=== PATIENT | female | born 1940 | race Caucasian/White ===

== ENCOUNTER 2023-10-14 13:21 | Emergency (ER) | payer OTHER, SELFPAY ==
[2023-10-14 13:29] VITALS: BP 140/75; PULSE 69; RESP 16; TEMP 36.7; O2SAT 95; BMI 30.7
--- NOTE | 2023-10-14 14:08 | ED.ABDPAIN ---
HPI - Abdominal Pain <Silvia Valera PA-C - Last Filed: 10/15/23 11:10> General Chief Complaint: Abdominal Pain Stated Complaint: Left abdominal pain after hitting on furniture Time Seen by Provider: 10/14/23 14:01 Source: patient Mode of arrival: Ambulatory History of Present Illness HPI narrative: Patient is a 83-year-old female who stumbled into a sharp corner of a bedside table in the dark 4 days ago. Since then she has been having significant pain in the soft tissues of her left side. The pain does not seem to be getting better. She takes Tylenol without much improvement. She does not take any blood thinners, aside from a baby aspirin once daily. He has no bruising although she does feel the area got swollen and after the incident. She denies any blood in her urine or any urinary symptoms such as dysuria or urinary frequency. She denies fever. The pain is 9/10 at its worst, made worse by moving. Related Data Allergies Allergy/AdvReac Type Severity Reaction Status Date / Time morphine Allergy Verified 10/14/23 13:34 Sulfa (Sulfonamide Allergy Verified 10/14/23 13:34 Antibiotics) Review of Systems <Silvia Valera PA-C - Last Filed: 10/15/23 11:10> Review of Systems ROS Unobtainable: All systems reviewed & are unremarkable except as noted in HPI and below Patient History <Silvia Valera PA-C - Last Filed: 10/15/23 11:10> Social History Smoking Status: Former smoker Smoking Status: Former smoker Substance Use Type: does not use Exam <Silvia Valera PA-C - Last Filed: 10/15/23 11:10> Narrative Exam Narrative: GENERAL: 83 year old patient appears stated age. Well-developed patient, in mild distress. NEURO: AOx3. HEAD: Atraumatic. Normocephalic. EYES: Pupils equal round and reactive. Extraocular motions intact. No scleral icterus. No injection or drainage. ENT: Nose without bleeding or purulent drainage. Airway patent. RESPIRATORY: No distress or increased work of breathing GASTROINTESTINAL: Abdomen soft, nondistended. Focal point of tenderness is in the soft tissues of the left side, inferior to the lowest rib. There is no ecchymosis, mild swelling. Area is tender to palpation. No CVA tenderness. EXTREMITIES: No edema or joint tenderness. SKIN: No rash or erythema of visible areas Initial Vital Signs Initial Vital Signs: Vital Signs Temperature 98.1 F 10/14/23 13:29 Pulse Rate 69 10/14/23 13:29 Respiratory Rate 16 10/14/23 13:29 Blood Pressure 140/75 10/14/23 13:29 Pulse Oximetry 95 10/14/23 13:29 Oxygen Delivery Method Room Air 10/14/23 13:29 <Donita Aiken DO - Last Filed: 10/15/23 17:42> Initial Vital Signs Initial Vital Signs: Vital Signs Temperature 98.1 F 10/14/23 13:29 Pulse Rate 69 10/14/23 13:29 Respiratory Rate 16 10/14/23 13:29 Blood Pressure 140/75 10/14/23 13:29 Pulse Oximetry 95 10/14/23 13:29 Oxygen Delivery Method Room Air 10/14/23 13:29 Course <Silvia Valera PA-C - Last Filed: 10/15/23 11:10> Vital Signs Vital signs: Vital Signs - 8 hr 10/14/23 13:29 Temperature 98.1 F Pulse Rate 69 Respiratory Rate 16 Blood Pressure 140/75 Pulse Oximetry 95 Oxygen Delivery Method Room Air <Donita Aiken DO - Last Filed: 10/15/23 17:42> Vital Signs Vital signs: Vital Signs - 8 hr 10/14/23 13:29 Temperature 98.1 F Pulse Rate 69 Respiratory Rate 16 Blood Pressure 140/75 Pulse Oximetry 95 Oxygen Delivery Method Room Air MDM - Abdominal Pain <Silvia Valera PA-C - Last Filed: 10/15/23 11:10> Lab Data 10/14/23 14:59 10/14/23 14:59 Labs: Lab Results 10/14/23 10/14/23 Range/Units 14:59 15:50 WBC 6.8 (4.5-11.0) X10^3/uL RBC 4.48 (4.0-5.2) X10^6/uL Hgb 13.6 (12.0-16.0) g/dL Hct 40.6 (36-46) % MCV 90.6 (80-100) fL MCH 30.4 (26-34) PG MCHC 33.5 (30-36) % RDW 13.1 (11.6-14.8) % Plt Count 239 (150-400) X10^3/uL Neut % (Auto) 55.0 (50-75) % Lymph % (Auto) 29.9 (25-40) % Esmeralda % (Auto) 9.9 (3-14) % Eos % (Auto) 4.3 H (2-4) % Baso % (Auto) 0.9 (0-2) % Neut # (Auto) 3700 (5165-7891) /uL Lymph # (Auto) 2000 (5582-4863) /uL Esmeralda # (Auto) 700 (0-900) /uL Eos # (Auto) 300 (0-450) /uL Baso # (Auto) 100 (0-100) /uL PT 12.8 H (9.4-12.5) SECONDS INR 1.1 (0.9-1.3) APTT 48 H (25.1-36.5) SECONDS Sodium 139 (137-145) mmol/L Potassium 3.8 (3.4-5.1) mmol/L Chloride 103 (98-107) mmol/L Carbon Dioxide 29 (22-32) mmol/L BUN 19 H (7-17) mg/dL Creatinine 0.89 (0.52-1.04) mg/dL Estimated GFR > 60 (>60) mL/min BUN/Creatinine Ratio 21.3 (6-22) Glucose 100 (80-110) mg/dL Calcium 9.4 (8.4-10.2) mg/dL Total Bilirubin 0.5 (0.2-1.3) mg/dL AST 26 (14-36) IU/L ALT 26 (<35) IU/L Alkaline Phosphatase 71 (38-126) U/L Total Protein 7.4 (6.3-8.2) g/dL Albumin 4.5 (3.5-5.0) g/dL Globulin 2.9 (1.7-4.1) g/dL Albumin/Globulin Ratio 1.6 (1.0-2.8) Lipase 120 (23-300) U/L Imaging Data CT scan - abdomen/pelvis: Radiologist's Impression: PROCEDURE: CT ABDOMEN PELVIS W CON INDICATIONS: pain in left side (just below ribs) after bumping furniture TECHNIQUE: After the administration of intravenous contrast, axial sections acquired from the lung bases to the pubic symphysis. Coronal and sagittal reformats were performed. For radiation dose reduction, the following was used: automated exposure control, adjustment of mA and/or kV according to patient size. COMPARISON: None. FINDINGS: Image quality: Excellent. Lung bases: Unremarkable. There is a small hiatal hernia. Heart: No significant findings. ABDOMEN: The liver is diffusely hypodense suggesting fatty infiltration. In ill-defined hypodensity is present within the inferior right hepatic lobe (series 2/image 26). Gallbladder: Surgically absent. Biliary ducts: Unremarkable. Pancreas: Unremarkable. Spleen: Unremarkable. Adrenal Glands: There is an intermediate density right 1.5 cm adrenal gland nodule and an intermediate density left 1.5 cm adrenal gland nodule. Kidneys and Ureters: Unremarkable. There is a low-density cortical cystic lesion within the lower pole of the left kidney. Stomach and Bowel: The stomach, small bowel loops and colon demonstrate normal caliber and wall thickness. There is a large amount of stool present throughout the colon. The appendix is not visualized; however there is no discrete right lower quadrant fluid or fat stranding to suggest acute appendicitis. Peritoneum: No abnormal intraperitoneal fluid. No free air. Ventral Wall: No hernias. Abdominal Nodes: No retroperitoneal or mesenteric adenopathy by size criteria. Vessels: Aorta and inferior vena cava are normal in size. There are scattered atheromatous calcifications throughout the aorta and iliac arteries bilaterally. PELVIS: Pelvic Organs: Unremarkable. Bladder: Unremarkable. Pelvic Nodes: No enlarged lymph nodes. Miscellaneous: No hernias are seen. Bones: Unremarkable. IMPRESSION: 1. No acute intra-abdominal findings. The appendix is not visualized; however there are no ancillary findings to suggest acute appendicitis. 2. No flank hematomas or other findings to suggest abdominal trauma. 3. Large stool burden throughout the colon. 4. Bilateral intermediate density adrenal gland nodules. If further characterization is warranted, nonemergent adrenal mass protocol CT could be used. Dictated by: Brina Ponce M.D. on 10/14/2023 at 16:18 Approved by: Brina Ponce M.D. on 10/14/2023 at 16:23 MDM Narrative Medical decision making narrative: Multiple etiologies for patient's symptoms considered including, but not limited to: Bruise, hematoma, splenic injury, retroperitoneal hematoma Low suspicion for dangerous pathology but given patient age and ongoing and severe pain x4 days, discussed with Dr. Lucas who agrees that the safest course of action is to check labs and obtain a CT abdomen pelvis to rule out any internal bleeding or other injury. Labs without clinically significant abnormality and CT with incidental findings of constipation and bilateral adrenal gland nodules, no evidence of intra-abdominal trauma or bleeding. Discussed results including incidental findings with patient who will follow up with her PCP. She is very relieved that nothing is terribly wrong. I advised continued symptomatic care such as ice, heat, rest and Tylenol or NSAIDs. Can consider topical lidocaine or diclofenac gel as well. Patient's symptoms improved over duration of stay with above-stated therapies. Findings and discharge diagnosis discussed with patient/family followed by verbalization of understanding Return precautions discussed with patient/family whom verbalize understanding of diagnosis and plan <Donita Aiken, DO - Last Filed: 10/15/23 17:42> Lab Data Labs: Lab Results 10/14/23 10/14/23 Range/Units 14:59 15:50 WBC 6.8 (4.5-11.0) X10^3/uL RBC 4.48 (4.0-5.2) X10^6/uL Hgb 13.6 (12.0-16.0) g/dL Hct 40.6 (36-46) % MCV 90.6 (80-100) fL MCH 30.4 (26-34) PG MCHC 33.5 (30-36) % RDW 13.1 (11.6-14.8) % Plt Count 239 (150-400) X10^3/uL Neut % (Auto) 55.0 (50-75) % Lymph % (Auto) 29.9 (25-40) % Esmeralda % (Auto) 9.9 (3-14) % Eos % (Auto) 4.3 H (2-4) % Baso % (Auto) 0.9 (0-2) % Neut # (Auto) 3700 (4174-6987) /uL Lymph # (Auto) 2000 (6639-0927) /uL Esmeralda # (Auto) 700 (0-900) /uL Eos # (Auto) 300 (0-450) /uL Baso # (Auto) 100 (0-100) /uL PT 12.8 H (9.4-12.5) SECONDS INR 1.1 (0.9-1.3) APTT 48 H (25.1-36.5) SECONDS Sodium 139 (137-145) mmol/L Potassium 3.8 (3.4-5.1) mmol/L Chloride 103 (98-107) mmol/L Carbon Dioxide 29 (22-32) mmol/L BUN 19 H (7-17) mg/dL Creatinine 0.89 (0.52-1.04) mg/dL Estimated GFR > 60 (>60) mL/min BUN/Creatinine Ratio 21.3 (6-22) Glucose 100 (80-110) mg/dL Calcium 9.4 (8.4-10.2) mg/dL Total Bilirubin 0.5 (0.2-1.3) mg/dL AST 26 (14-36) IU/L ALT 26 (<35) IU/L Alkaline Phosphatase 71 (38-126) U/L Total Protein 7.4 (6.3-8.2) g/dL Albumin 4.5 (3.5-5.0) g/dL Globulin 2.9 (1.7-4.1) g/dL Albumin/Globulin Ratio 1.6 (1.0-2.8) Lipase 120 (23-300) U/L Discharge Plan Departure Patient Disposition: Home Clinical Impression: Soft tissue complaint Instructions: Soft Tissue Pain (Alternative Therapy), How To Perform RICE (Rest, Ice, Compress, Elevate) Activity Restrictions/Additional Instructions: *You have been diagnosed with a soft tissue injury. There is no evidence of internal organ damage or bleeding on your workup today. I suspect this pain will get better with time. You can use ice, heat, [id number]-[id number] pain medicines if they help. If you develop any shortness of breath, blood in your urine or other concerning symptoms, please return to the emergency room. It was a pleasure taking care of you today! *What to do: *Please continue to take your regular medications as directed. [ ] New medication prescriptions sent to your pharmacy: [ ] [ ] New medication written as a paper prescription [x] No new medications given *Please follow up with your primary care provider in 2-3 days, call for an appointment. Let them know you were seen in the Emergency Department and that we ask that you be seen in follow up. We will electronically transmit a record of today's note if your PCP is in our system *If you do not have a primary care provider please contact the [facility] Resource line at [phone]. They will ask some questions about your medical history and help get you set up with a doctor in the community. *Return to Emergency Department if you should have any new, worsening or concerning symptoms, such as [fever greater than 101 F, shaking chills, worsening pain, persistent vomiting or other concerning symptoms]. Stand Alone Forms: Patient Portal/API ED Sign-out <Donita Aiken, DO - Last Filed: 10/15/23 17:42> Cosign ED Attending Teshaature Attestation: I was immediately available in the department for consultation. Patient case discussed plan for labs, CT abdomen pelvis based on extremity of age mechanism. These were reviewed.
--- NOTE | 2023-10-14 14:33 | DI.CT.S_ITS ---
PROCEDURE: CT ABDOMEN PELVIS W CON INDICATIONS: pain in left side (just below ribs) after bumping furniture TECHNIQUE: After the administration of intravenous contrast, axial sections acquired from the lung bases to the pubic symphysis. Coronal and sagittal reformats were performed. For radiation dose reduction, the following was used: automated exposure control, adjustment of mA and/or kV according to patient size. COMPARISON: None. FINDINGS: Image quality: Excellent. Lung bases: Unremarkable. There is a small hiatal hernia. Heart: No significant findings. ABDOMEN: The liver is diffusely hypodense suggesting fatty infiltration. In ill-defined hypodensity is present within the inferior right hepatic lobe (series 2/image 26). Gallbladder: Surgically absent. Biliary ducts: Unremarkable. Pancreas: Unremarkable. Spleen: Unremarkable. Adrenal Glands: There is an intermediate density right 1.5 cm adrenal gland nodule and an intermediate density left 1.5 cm adrenal gland nodule. Kidneys and Ureters: Unremarkable. There is a low-density cortical cystic lesion within the lower pole of the left kidney. Stomach and Bowel: The stomach, small bowel loops and colon demonstrate normal caliber and wall thickness. There is a large amount of stool present throughout the colon. The appendix is not visualized; however there is no discrete right lower quadrant fluid or fat stranding to suggest acute appendicitis. Peritoneum: No abnormal intraperitoneal fluid. No free air. Ventral Wall: No hernias. Abdominal Nodes: No retroperitoneal or mesenteric adenopathy by size criteria. Vessels: Aorta and inferior vena cava are normal in size. There are scattered atheromatous calcifications throughout the aorta and iliac arteries bilaterally. PELVIS: Pelvic Organs: Unremarkable. Bladder: Unremarkable. Pelvic Nodes: No enlarged lymph nodes. Miscellaneous: No hernias are seen. Bones: Unremarkable. IMPRESSION: 1. No acute intra-abdominal findings. The appendix is not visualized; however there are no ancillary findings to suggest acute appendicitis. 2. No flank hematomas or other findings to suggest abdominal trauma. 3. Large stool burden throughout the colon. 4. Bilateral intermediate density adrenal gland nodules. If further characterization is warranted, nonemergent adrenal mass protocol CT could be used. Dictated by: Brina Ponce M.D. on 10/14/2023 at 16:18 Approved by: Brina Ponce M.D. on 10/14/2023 at 16:23
[2023-10-14 15:12] LABS: Add Manual Diff / Slide Review NO; Basophils Absolute Auto 100 /uL (0-100); Basophils Percent Auto 0.9 % (0-2); Eosinophils Absolute Auto 300 /uL (0-450); Eosinophils Percent Auto 4.3 % (2-4); Hematocrit 40.6 % (36-46); Hemoglobin 13.6 g/dL (12.0-16.0); Lymphocytes Absolute Auto 2000 /uL (1100-4500); Lymphocytes Percent Auto 29.9 % (25-40); Mean Corpuscular HGB Conc 33.5 % (30-36); Mean Corpuscular Hemoglobin 30.4 PG (26-34); Mean Corpuscular Volume 90.6 fL (80-100); Monocytes Absolute Auto 700 /uL (0-900); Monocytes Percent Auto 9.9 % (3-14); Neutrophils Absolute Auto 3700 /uL (1500-7000); Platelet Count 239 X10^3/uL (150-400); Red Blood Cell Count 4.48 X10^6/uL (4.0-5.2); Red Cell Distribution Width 13.1 % (11.6-14.8); White Blood Cell Count 6.8 X10^3/uL (4.5-11.0)
[2023-10-14 15:56] LABS: Alanine Aminotransferase 26 IU/L (<35); Albumin 4.5 g/dL (3.5-5.0); Albumin Globulin Ratio 1.6 (1.0-2.8); Alkaline Phosphatase 71 U/L (38-126); Aspartate Aminotransferase 26 IU/L (14-36); BUN Creatinine Ratio 21.3 (6-22); Bilirubin Total 0.5 mg/dL (0.2-1.3); Blood Urea Nitrogen 19 mg/dL (7-17); Calcium 9.4 mg/dL (8.4-10.2); Carbon Dioxide 29 mmol/L (22-32); Chloride 103 mmol/L (98-107); Estimated Glomerular Filt Rate > 60 mL/min (>60); Globulin 2.9 g/dL (1.7-4.1); Glucose 100 mg/dL (80-110); HEMOLYSIS < 15 (0-50); Lipase 120 U/L (23-300); Potassium 3.8 mmol/L (3.4-5.1); Sodium 139 mmol/L (137-145); Total Protein 7.4 g/dL (6.3-8.2)
[2023-10-14 16:11] LABS: PTT Partial Thromboplastin Tim 48 SECONDS (25.1-36.5)
[2023-10-14 16:25] LABS: INR 1.1 (0.9-1.3); Prothrombin Time 12.8 SECONDS (9.4-12.5)
[2023-10-14 16:50] VITALS: BP 135/62; PULSE 62; RESP 16; O2SAT 97
== END 2023-10-14 16:50 | disposition home or self-care (01) ==
PROVIDERS: Emergency Provider Physician Assistant
DX: S80.922A Unspecified superficial injury of left lower leg, initial encounter (principal); W22.03XA Walked into furniture, initial encounter
CPT/HCPCS: 36415; 74177; 80053; 83690; 85025; 85610; 85730; 99284

== ENCOUNTER → 2025-03-05 08:26 | Outpatient (CLI) | payer OTHER, SELFPAY ==
--- NOTE | 2025-03-05 08:28 | DI.MG.S_ITS ---
MM screening mammo BI: 03/05/2025. BI-RADS: 2 CLINICAL: 84-year old female for bilateral screening mammogram. No Tyrer-Cuzick risk score calculation due to the patient's personal history of breast cancer. 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 Status-post right lumpectomy. No first-degree family history of breast cancer. The patient had a prior left breast biopsy. PRIOR EXAMS Outside films 02/21/2022, 2020, 06/01/2019, 05/26/2018, 06/17/2017, 05/26/2017, 05/20/2017, 05/12/2017. MAMMOGRAPHY TECHNIQUE: 2D and 3D (tomosynthesis) digital mammographic views obtained, with additional images as needed for full coverage. Current study was also evaluated with a Computer Aided Detection (CAD) system. DENSITY C. The breasts are heterogeneously dense, which may obscure small masses. MAMMOGRAPHY FINDINGS Bilateral: Benign-appearing post-surgical changes noted. There are no suspicious masses, calcifications, or other findings in the breast. No significant change from comparison. IMPRESSION: * No evidence of malignancy with benign findings. RECOMMENDATIONS Bilateral * Annual screening mammography. OVERALL ASSESSMENT CATEGORY BI-RADS-2: Benign. The [employer] recommends annual screening mammography beginning at age 40 for women with average risk of breast cancer. ELECTRONICALLY SIGNED: Yari Lockwood M.D. on 03/07/2025 at 11:55:47 AM PT Interpreting Station ID: [id number]
== END ==
LOC: MAMMO 08:28
PROVIDERS: Referring Provider Family Medicine; Visit Provider Family Medicine
DX: Z12.31 Encounter for screening mammogram for malignant neoplasm of breast (principal); Z85.3 Personal history of malignant neoplasm of breast; R92.333 Mammographic heterogeneous density, bilateral breasts
CPT/HCPCS: 77063; 77067

== ENCOUNTER → 2025-06-06 09:18 | Outpatient (CLI) | payer OTHER, SELFPAY ==
--- NOTE | 2025-06-06 09:21 | DI.RAD.S_ITS ---
PROCEDURE: XR LUMBAR SPINE 2-3V INDICATIONS: LUMBAR PAIN TECHNIQUE: 3 views of the lumbar spine were acquired. COMPARISON: None. FINDINGS: Lumbar spine curvature and alignment: Moderate levoscoliosis of lower thoracic and lumbar spine appreciated. Grade 1 L3-4 spondylolisthesis due to degenerate facet disease Bones: Mild biconcavity of the visualized lower thoracic vertebral bodies T10 through E09-G5-V1 suggests osteoporosis. No jaxon compression fractures. Disc spaces: Moderate degenerative disc disease T10-11 through L1-2 mild L2-3 L3-4 and moderate L4-5 degenerative disc disease. 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 Severe L3-4 through L5-S1 degenerative facet disease Soft tissues: No soft tissue swelling, calcification or mass. IMPRESSION: Multilevel degeneration. Grade 1 L3-4 spondylolisthesis due to degenerate facet disease. osteoporosis osteoporosis suspected. Suggest DEXA scan Dictated by: Woodrow Liu M.D. on 06/07/2025 at 10:54 Approved by: Woodrow Liu M.D. on 06/07/2025 at 10:56
== END ==
PROVIDERS: PCP Family Medicine; Referring Provider Family Medicine; Visit Provider Family Medicine
DX: M51.34 Other intervertebral disc degeneration, thoracic region (principal); M51.369 Other intervertebral disc degeneration, lumbar region without mention of lumbar back pain or lower extremity pain; M47.816 Spondylosis without myelopathy or radiculopathy, lumbar region; M47.817 Spondylosis without myelopathy or radiculopathy, lumbosacral region; M43.16 Spondylolisthesis, lumbar region; M62.830 Muscle spasm of back
CPT/HCPCS: 72100

== ENCOUNTER 2025-06-25 12:14 | Emergency (ER) | payer OTHER, SELFPAY ==
[2025-06-25] VITALS (7 sets, daily range): BP systolic 117–140; BP diastolic 61–68; PULSE 63–74; RESP 13–18; TEMP 36.1; O2SAT 93–97; BMI 29.0
--- NOTE | 2025-06-25 12:37 | DI.CT.S_ITS ---
PROCEDURE: CT ABDOMEN PELVIS W CON INDICATIONS: R low back and flank pain ; UTI TECHNIQUE: After the administration of intravenous contrast, axial sections acquired from the lung bases to the pubic symphysis. Coronal and sagittal reformats were performed. For radiation dose reduction, the following was used: automated exposure control, adjustment of mA and/or kV according to patient size. COMPARISON: [facility], CT, CT ABDOMEN PELVIS W CON, 10/14/2023, 16:07. FINDINGS: Image quality: Diagnostic. Lower Chest: No significant findings. ABDOMEN: Liver: No solid mass. Tiny hypodensities are again seen in right and left hepatic lobes likely represent hepatic cysts not significantly changed from prior study. Gallbladder: Gallbladder is surgically absent. Biliary ducts: No biliary dilation. Pancreas: No ductal dilation. Spleen: Size is within normal limits. Adrenal Glands: Hypodense nodules are again seen in bilateral adrenal glands unchanged in size and appearance from prior study likely represent benign adrenal adenoma. Kidneys and Ureters: No hydronephrosis. No solid mass. No complex renal cystic lesion which requires follow up. No significant perinephric fat stranding or fluid. Stomach and Bowel: Mild fluid filled small bowel loops are noted throughout abdomen with questionable wall thickening and enhancement concerning for low-grade enteritis. No colonic wall thickening. [id number] fecal stasis in the colon is seen. No abscess collection. Peritoneum: No abnormal intraperitoneal fluid. No free air. Ventral Wall: No significant ventral hernia. Abdominal Nodes: No retroperitoneal or mesenteric adenopathy by size criteria. Vessels: Aorta and inferior vena cava are normal in size. PELVIS: Pelvic Organs: Unremarkable. Bladder: No bladder wall thickening, accounting for underdistention. Pelvic Nodes: No enlarged lymph nodes. Miscellaneous: Small bilateral inguinal hernias containing fat only. Bones: No aggressive osseous abnormality. IMPRESSION: 1. No obstructing renal stones or hydronephrosis. No significant perinephric inflammatory changes. No significant bladder wall thickening or discrete bladder wall mass. 2. Finding is concerning for low-grade enteritis. No bowel obstruction. No abscess collection. Mild constipation. No free fluid or free air. 3. Other chronic findings as above, not significantly changed from 2022 study. Dictated by: Dayo Faustin M.D. on 06/25/2025 at 14:15 Approved by: Dayo Faustin M.D. on 06/25/2025 at 14:18
--- NOTE | 2025-06-25 12:39 | ED.FEMALEGU ---
HPI - Female Genitourinary General Chief complaint: Urogenital-Female Stated complaint: Severe back pain started this am Time Seen by Provider: 06/25/25 12:25 Source: patient Mode of arrival: Ambulatory History of Present Illness HPI Narrative: Ms. Zavaleta is a pleasant 84-year-old female with a past medical history of HFpEF, chronic back pain, HLD, prior breast cancer s/p lumpectomy who presents to the emergency department for right low back pain x1 day in the setting of currently being treated for UTI. Patient states she completed a 7 day course of an unknown antibiotic but continued to have UTI type symptoms, was off antibiotics for 3 or 4 days, and is currently on day 2/3 of cipro. She is continuing to have dysuria. Reports that this morning while she was at home she was cleaning around the house, putting things away when she noticed her chronic back pain became much worse than usual specifically in the right low back and the right flank region which is unusual for her. She had no direct injury. Her son encouraged her to come to the ED. She reports that she was feeling nauseous yesterday but this resolved. At this time she denies fevers, chills, nausea, vomiting, abdominal pain, hematuria, diarrhea, chest pain, shortness of breath, coughing, URI type symptoms. She does suffer with some chronic constipation but states that it is quite mild. Reports that she is allergic to sulfa antibiotics and morphine, but she does tolerate hydrocodone and oxycodone. She took Tylenol this morning which did not resolve the pain. States that her primary care doctor, Dr. Neely, has advised her to not take too much ibuprofen but she does not recall if she has chronic kidney disease. She does recall Vicodin being very effective for her back pain many years ago. Not on any AC. Related Data Previous Rx's ?Medication ?Instructions ?Recorded hydrocodone 5 mg-acetaminophen 325 1 tab PO Q4-6H PRN pain #12 tabs 06/25/25 mg tablet Allergies Allergy/AdvReac Type Severity Reaction Status Date / Time morphine Allergy Verified 06/25/25 12:19 Sulfa (Sulfonamide Allergy Verified 06/25/25 12:19 Antibiotics) Review of Systems Review of Systems ROS Unobtainable: All systems reviewed & are unremarkable except as noted in HPI and below Exam Narrative Exam Narrative: GENERAL: 84 year old patient appears stated age. Well-appearing, well-groomed patient, in no acute distress. HEAD: Atraumatic. Normocephalic. EYES: No scleral icterus. No injection or drainage. NECK: Trachea midline. Cervical ROM intact. CARDIOVASCULAR: Regular rate and rhythm. RESPIRATORY: ?Nonlabored respirations. ?Speaking in clear, full sentences. ?Clear to auscultation. Breath sounds equal bilaterally. No wheezes, rales, or rhonchi. ? GASTROINTESTINAL: Abdomen soft, non-tender, nondistended. BS present. EXTREMITIES: No LE edema BACK: There is tenderness to palpation of the right paralumbar spinal region and right parathoracic spinal region but negative CVA tenderness bilaterally. NEURO: AOx3. ?Clear speech. ?Moves all 4 extremities appropriately. SKIN: No rash or erythema of visible areas Initial Vital Signs Initial Vital Signs: Vital Signs Temperature 97.0 F L 06/25/25 12:19 Pulse Rate 74 06/25/25 12:19 Respiratory Rate 13 06/25/25 12:19 Blood Pressure 124/65 06/25/25 12:19 Pulse Oximetry 96 06/25/25 12:19 Oxygen Delivery Method Room Air 06/25/25 12:19 Course Orders Ordered: ED Orders 06/25/25 12:37 CT abdomen pelvis w con Stat 06/25/25 13:03 CBC Auto Diff [Complete Blood Count AUTO DIFF] Stat CMP [Comprehensive Metabolic Panel] Stat Lipase Stat 06/25/25 14:54 Urinalysis and Microscopic Stat Urine Culture Stat Discontinued Medications Hydrocodone Bitart/Acetaminophen (Hydrocodone/Acet 5/325 Tablet) 1 tab PO NOW ONE Stop: 06/25/25 12:38 Last Admin: 06/25/25 13:09 Dose: 1 tab Documented By: ADRIAN Hydrocodone Bitart/Acetaminophen (Hydrocodone/Acet 5/325 Tablet) 1 tab PO NOW ONE Stop: 06/25/25 15:01 Last Admin: 06/25/25 15:10 Dose: 1 tab Documented By: EBONI Sodium Chloride (Normal Saline 0.9%) 500 mls @ 1,000 mls/hr IV BOLUS ONE Stop: 06/25/25 13:06 Last Infusion: 06/25/25 15:00 Dose: Infused Documented By: Admin: 06/25/25 13:10 Dose: 500 mls/hr Documented By: ADRIAN Ceftriaxone Sodium 1,000 mg/ (Sodium Chloride) 100 mls @ 200 mls/hr IV NOW ONE Stop: 06/25/25 15:22 Last Infusion: 06/25/25 16:17 Dose: Infused Documented By: Admin: 06/25/25 15:33 Dose: 200 mls/hr Documented By: EBONI Ketorolac Tromethamine (Ketorolac 30 Mg/Ml Vial) 15 mg IV NOW ONE Stop: 06/25/25 15:01 Last Admin: 06/25/25 15:11 Dose: 15 mg Documented By: EBONI Lidocaine (Lidocaine 5% Patch) 1 each TOP NOW ONE Stop: 06/25/25 12:43 Last Admin: 06/25/25 13:07 Dose: 1 each Documented By: ADRIAN Ondansetron HCl (Ondansetron 4 Mg/2 Ml Inj) 4 mg IV NOW ONE Stop: 06/25/25 12:38 Last Admin: 06/25/25 13:08 Dose: 4 mg Documented By: ADRIAN Vital Signs Vital signs: Vital Signs - 8 hr 06/25/25 12:19 06/25/25 13:19 06/25/25 13:20 Temperature 97.0 F L Pulse Rate 74 64 Respiratory Rate 13 Blood Pressure 124/65 117/61 Pulse Oximetry 96 Oxygen Delivery Method Room Air 06/25/25 13:20 06/25/25 13:30 06/25/25 13:30 Temperature Pulse Rate 64 63 Respiratory Rate Blood Pressure 130/68 Pulse Oximetry 93 96 Oxygen Delivery Method 06/25/25 14:00 06/25/25 14:30 06/25/25 16:33 Temperature Pulse Rate 73 66 Respiratory Rate 18 16 Blood Pressure 140/68 Pulse Oximetry 95 95 Oxygen Delivery Method 06/25/25 16:33 Temperature Pulse Rate 70 Respiratory Rate 16 Blood Pressure Pulse Oximetry 97 Oxygen Delivery Method MDM - Female Genitourinary Medical Records Attestation: I reviewed the patient's medical records. Lab Data 06/25/25 13:03 06/25/25 13:03 Labs: Lab Results 06/25/25 06/25/25 Range/Units 13:03 14:54 WBC 5.6 (4.5-11.0) X10^3/uL RBC 4.40 (4.0-5.2) X10^6/uL Hgb 13.5 (12.0-16.0) g/dL Hct 39.6 (36-46) % MCV 90.1 (80-100) fL MCH 30.8 (26-34) PG MCHC 34.2 (30-36) % RDW 13.0 (11.6-14.8) % Plt Count 201 (150-400) X10^3/uL Neut % (Auto) 63.8 (50-75) % Lymph % (Auto) 23.8 L (25-40) % Tift % (Auto) 8.9 (3-14) % Eos % (Auto) 2.5 (2-4) % Baso % (Auto) 1.0 (0-2) % Neut # (Auto) 3600 (8268-3434) /uL Lymph # (Auto) 1300 (5269-6120) /uL Tift # (Auto) 500 (0-900) /uL Eos # (Auto) 100 (0-450) /uL Baso # (Auto) 100 (0-100) /uL Sodium 139 (137-145) mmol/L Potassium 4.0 (3.4-5.1) mmol/L Chloride 106 (98-107) mmol/L Carbon Dioxide 26 (22-32) mmol/L BUN 17 (7-17) mg/dL Creatinine 1.03 (0.52-1.04) mg/dL Estimated GFR 54 L (>60) mL/min BUN/Creatinine Ratio 16.5 (6-22) Glucose 100 H (70-99) mg/dL Calcium 8.8 (8.4-10.2) mg/dL Total Bilirubin 0.6 (0.2-1.3) mg/dL AST 37 H (14-36) IU/L ALT 48 H (<35) IU/L Alkaline Phosphatase 61 (38-126) U/L Total Protein 6.8 (6.3-8.2) g/dL Albumin 4.2 (3.5-5.0) g/dL Globulin 2.6 (1.7-4.1) g/dL Albumin/Globulin Ratio 1.6 (1.0-2.8) Lipase 82 (23-300) U/L Urine Color Yellow Urine Appearance Clear Urine pH 7.0 (4.5-8.0) Ur Specific [place] <=1.005 (1.000-1.035) Urine Protein Negative (Negative) Urine Glucose (UA) Negative (Negative) g/dL Urine Ketones Negative (NEGATIVE) Urine Occult Blood Negative (Negative) Urine Nitrate Positive H (Negative) Urine Bilirubin Negative (NEGATIVE) Urine Urobilinogen 0.2 (0.2) E.U./dL Ur Leukocyte Esterase 1+ H (NEGATIVE) Urine RBC None seen (0-5/HPF) Urine WBC 1-5/hpf (0-5/HPF) Ur Squamous Epith Cells 0-1 /hpf (0-5/HPF) Urine Bacteria Few (2-10) H (None) Urine Yeast 0-1/hpf (None) Ur Culture Indicated? Specimen cultured Vol Urine Centrifuged 10ml (spun) Imaging Data CT Ab/Pelvis: Radiologist's Impression: PROCEDURE: CT ABDOMEN PELVIS W CON INDICATIONS: R low back and flank pain ; UTI TECHNIQUE: After the administration of intravenous contrast, axial sections acquired from the lung bases to the pubic symphysis. Coronal and sagittal reformats were performed. For radiation dose reduction, the following was used: automated exposure control, adjustment of mA and/or kV according to patient size. COMPARISON: [facility], CT, CT ABDOMEN PELVIS W CON, 10/14/2023, 16:07. FINDINGS: Image quality: Diagnostic. Lower Chest: No significant findings. ABDOMEN: Liver: No solid mass. Tiny hypodensities are again seen in right and left hepatic lobes likely represent hepatic cysts not significantly changed from prior study. Gallbladder: Gallbladder is surgically absent. Biliary ducts: No biliary dilation. Pancreas: No ductal dilation. Spleen: Size is within normal limits. Adrenal Glands: Hypodense nodules are again seen in bilateral adrenal glands unchanged in size and appearance from prior study likely represent benign adrenal adenoma. Kidneys and Ureters: No hydronephrosis. No solid mass. No complex renal cystic lesion which requires follow up. No significant perinephric fat stranding or fluid. Stomach and Bowel: Mild fluid filled small bowel loops are noted throughout abdomen with questionable wall thickening and enhancement concerning for low-grade enteritis. No colonic wall thickening. [id number] fecal stasis in the colon is seen. No abscess collection. Peritoneum: No abnormal intraperitoneal fluid. No free air. Ventral Wall: No significant ventral hernia. Abdominal Nodes: No retroperitoneal or mesenteric adenopathy by size criteria. Vessels: Aorta and inferior vena cava are normal in size. PELVIS: Pelvic Organs: Unremarkable. Bladder: No bladder wall thickening, accounting for underdistention. Pelvic Nodes: No enlarged lymph nodes. Miscellaneous: Small bilateral inguinal hernias containing fat only. Bones: No aggressive osseous abnormality. IMPRESSION: 1. No obstructing renal stones or hydronephrosis. No significant perinephric inflammatory changes. No significant bladder wall thickening or discrete bladder wall mass. 2. Finding is concerning for low-grade enteritis. No bowel obstruction. No abscess collection. Mild constipation. No free fluid or free air. 3. Other chronic findings as above, not significantly changed from 2022 study. Dictated by: Dayo Faustin M.D. on 06/25/2025 at 14:15 Approved by: Dayo Faustin M.D. on 06/25/2025 at 14:18 [facility] Narrative Medical decision making narrative: 84-year-old female with a past medical history of HFpEF, chronic back pain, HLD, prior breast cancer s/p lumpectomy who presents to the emergency department for right low back pain x1 day in the setting of currently being treated for UTI. Differential diagnosis includes but is not limited to pyelonephritis, nephrolithiasis, ureterolithiasis, UTI, muscle spasm, lumbar degenerative disc disease, lumbar strain, sprain, electrolyte abnormality, etc. On exam the patient is in no acute distress, nontoxic-appearing, all vital signs within normal limits. She experienced nontraumatic right low back/right flank pain however she was doing some cleaning and putting things away that precipitated the symptoms. She is currently on day 2 of 3 of ciprofloxacin for urinary tract infection after completing a 7 day course another antibiotic. Physical exam is very reassuring with a well-appearing patient, abdomen is soft and nontender, lungs clear to auscultation bilaterally, there is tenderness present in the right paralumbar and parathoracic region but negative CVA tenderness. We will proceed with repeat urinalysis, CBC, CMP, lipase and CT abdomen pelvis with IV contrast to further evaluate for possible kidney pathology. We will treat with gentle IV fluids, 500 mL, Zofran and Vicodin as patient states this worked for her previously, unsure of renal function so will hold off on NSAIDs until labs. Labs reveal normal WBC count 5.6, hemoglobin 13.5 hematocrit 39.6. Platelets 201. Sodium 139, potassium 4.0, BUN 17 creatinine 1.03. Normal lipase 82. Urinalysis is nitrite positive with few leukocyte esterase and WBCs, despite being on ciprofloxacin. CT reveals no obstructing renal stones or hydronephrosis, no significant perinephric inflammatory changes, no significant bladder wall thickening. Findings are concerning for low-grade enteritis and mild constipation At this time I suspect patient's pain may be related to musculoskeletal pain in addition to continuing UTI. We will treat with 1 g of ceftriaxone in the ED. I did recommend the patient complete her full 3 day course of ciprofloxacin while urine cultures are pending, with resuming ciprofloxacin tomorrow. Pain improved in the ED, she was sent a short course of hydrocodone-acetaminophen, also recommended normal acetaminophen for [id number] pain, supportive care, heat therapy, Lidoderm. Discussed follow up with PCP and strict ED return precautions. Patient is ambulatory and verbalized understanding of all information, all questions answered, stable for discharge home, VS WNL. Discharge Plan Departure Patient Disposition: Home Clinical Impression: Acute right-sided low back pain Qualifiers: Sciatica presence: without sciatica Qualified Code(s): M54.50 - Low back pain, unspecified Urinary tract infection Qualifiers: Urinary tract infection type: site unspecified Hematuria presence: without hematuria Qualified Code(s): N39.0 - Urinary tract infection, site not specified Instructions: DI for Low Back Pain, DI for Urinary Tract Infection (UTI) Activity Restrictions/Additional Instructions: Dear Waqar, Thank you for coming to the emergency department. Today you were evaluated for right-sided low back pain. Your CT scan did not reveal any problems with your kidney such as kidney stones or kidney infection. You urine test does reveal a continued UTI, so you were treated with IV antibiotics. I have sent you a short course of strong pain medication to your pharmacy, please use this in addition to Tylenol, topical Lidoderm patches, heat therapy. Please complete the full course of the previous antibiotic you were prescribed by your primary care doctor, ciprofloxacin. Please follow up with your primary care doctor within the next 2-3 days for ER follow-up. (If you do not have a PCP you can call [phone]. ?to schedule an appointment with an [facility] Primary Care Provider) IF YOU DEVELOP ANY NEW OR WORSENING SYMPTOMS, RETURN TO THE ER! Please read the attached instructions, they highlight more specific treatments and interventions for you at home. Thank you for letting me participate in your care, Amara Silva PA-C You have been prescribed a short course of narcotic medications. These are potentially dangerous and addictive medications that should be used carefully. While on these medications you cannot drive or operate heavy machinery. Additionally, you cannot sign legal documents or perform any duties such as this. 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 Please understand that we cannot provide further refills of narcotics or controlled substances through the ED and your pain management will need to be through your Primary Care Provider Prescriptions: New hydrocodone-acetaminophen 5-325 mg tablet 1 tab PO Q4-6H PRN (Reason: pain) Qty: 12 0RF Referrals: Hossein Neely MD [Primary Care Provider, Family Practice] Stand Alone Forms: Patient Portal/API
[2025-06-25] MEDS: LIDOCAINE 5% PATCH 1 EACH TOP (13:07)
[2025-06-25] MEDS: ONDANSETRON 4 MG/2 ML INJ IV (13:08)
[2025-06-25] MEDS: HYDROCODONE/ACET 5/325 TABLET 1 TAB PO ×2 (13:09→15:10)
[2025-06-25] MEDS: SODIUM CHLORIDE 0.9% 500 ML IV (13:10)
[2025-06-25 13:13] LABS: Add Manual Diff / Slide Review NO; Hematocrit 39.6 % (36-46); Hemoglobin 13.5 g/dL (12.0-16.0); Lymphocytes Absolute Auto 1300 /uL (1100-4500); Mean Corpuscular HGB Conc 34.2 % (30-36); Mean Corpuscular Hemoglobin 30.8 PG (26-34); Mean Corpuscular Volume 90.1 fL (80-100); Platelet Count 201 X10^3/uL (150-400)
[2025-06-25 13:26] LABS: Alanine Aminotransferase 48 IU/L (<35); Albumin 4.2 g/dL (3.5-5.0); Albumin Globulin Ratio 1.6 (1.0-2.8); Alkaline Phosphatase 61 U/L (38-126); Blood Urea Nitrogen 17 mg/dL (7-17); Calcium 8.8 mg/dL (8.4-10.2); Carbon Dioxide 26 mmol/L (22-32); Chloride 106 mmol/L (98-107); Estimated Glomerular Filt Rate 54 mL/min (>60); Globulin 2.6 g/dL (1.7-4.1); Glucose 100 mg/dL (70-99); HEMOLYSIS < 15 (0-50); Lipase 82 U/L (23-300); Potassium 4.0 mmol/L (3.4-5.1); Sodium 139 mmol/L (137-145); Total Protein 6.8 g/dL (6.3-8.2)
[2025-06-25 15:05] LABS: Appearance Urine UA CLEAR; Bilirubin Urine UA NEGATIVE (NEGATIVE); Color Urine UA YELLOW; Glucose Urine UA NEGATIVE (Negative); Ketones Urine UA NEGATIVE (NEGATIVE); Leukocyte Esterase Urine UA 1+ (NEGATIVE); Nitrite Urine UA POSITIVE (Negative); Occult Blood Urine UA NEGATIVE (Negative); Protein Urine UA NEGATIVE (Negative); Specific Gravity Urine UA <=1.005 (1.000-1.035); Urobilinogen Urine UA 0.2 E.U./dL (0.2)
[2025-06-25 15:11] LABS: pH Urine UA 7.0 (4.5-8.0)
[2025-06-25] MEDS: KETOROLAC 30 MG/ML VIAL 15 MG IV (15:11)
[2025-06-25 15:14] LABS: Culture Indicated Urine Specimen Cultured
== END 2025-06-25 16:42 | disposition home or self-care (01) ==
PROVIDERS: Emergency Provider Physician Assistant; PCP Family Medicine
DX: M54.50 Low back pain, unspecified (principal); N39.0 Urinary tract infection, site not specified
CPT/HCPCS: 74177; 80053; 81001; 83690; 85025; 87077; 87086; 87186; 96361; 96365; 96375; 99284; J0696; J1885; J2405; Q9967

== ENCOUNTER → 2025-11-13 14:44 | Outpatient (CLI) | payer OTHER, SELFPAY | PROVIDERS: PCP Family Medicine; Visit Provider Chiropractor | DX: R39.15 Urgency of urination (principal) | CPT/HCPCS: 87077; 87086 ==